=== PATIENT | female | born 1975 | race Caucasian/White ===

== ENCOUNTER 2018-03-09 19:30 | Outpatient (CLI) | payer OTHER | END 2018-03-09 19:31 | disposition home or self-care (01) | LOC: SLEEPLAB 19:30 | PROVIDERS: ATTEND Nurse Practitioner Family | DX: G47.33 Obstructive sleep apnea (adult) (pediatric) (principal); R06.83 Snoring; E66.9 Obesity, unspecified; Z68.43 Body mass index [BMI] 50.0-59.9, adult; I10 Essential (primary) hypertension; F32.9 Major depressive disorder, single episode, unspecified | CPT/HCPCS: 95811 ==

== ENCOUNTER 2018-09-01 10:12 | Outpatient (CLI) | payer OTHER | END 2018-09-01 10:13 | disposition home or self-care (01) | LOC: DTY/OP 10:12 | PROVIDERS: ATTEND Surgery | DX: E66.01 Morbid (severe) obesity due to excess calories (principal) | CPT/HCPCS: 97802 ==

== ENCOUNTER 2018-09-29 09:32 | Outpatient (CLI) | payer OTHER | END 2018-09-29 09:33 | disposition home or self-care (01) | LOC: DTY/OP 09:32 | PROVIDERS: ATTEND Surgery | DX: E66.01 Morbid (severe) obesity due to excess calories (principal) | CPT/HCPCS: 97802 ==

== ENCOUNTER 2018-11-04 10:45 | Outpatient (CLI) | payer OTHER | END 2018-11-04 10:46 | disposition home or self-care (01) | LOC: DTY/OP 10:45 | PROVIDERS: ATTEND Surgery | DX: E66.01 Morbid (severe) obesity due to excess calories (principal) | CPT/HCPCS: 97802 ==

== ENCOUNTER 2018-12-02 10:39 | Outpatient (CLI) | payer OTHER | END 2018-12-02 10:40 | disposition home or self-care (01) | LOC: DTY/OP 10:39 | PROVIDERS: ATTEND Surgery | DX: E66.01 Morbid (severe) obesity due to excess calories (principal); Z98.84 Bariatric surgery status | CPT/HCPCS: 97802 ==

== ENCOUNTER 2019-01-05 00:28 | Outpatient (CLI) | payer OTHER ==
--- NOTE | 2019-01-05 16:23 | RAD ---
CHEST 2 VIEWS: HISTORY: Preoperative evaluation: FINDINGS: Minimal increased bronchovascular markings in the perihilar regions bilaterally. No confluent pneumo eli, overt edema, or pleural effusion. IMPRESSION: Increased bronchovascular markings in the perihilar regions bilaterally without confluent pneumonia, overt edema, or other significant acute process. POS: C
[2019-01-05 16:39] LABS: #Lymphocytes 1.8 thou/uL (1.20-3.40); #Monocytes 0.5 thou/uL (0.11-0.59); #Neutrophils 5.2 thou/uL (1.40-6.50); %Basophils 0.2 % (0.0-1.0); %Eosinophils 0.2 % (0.0-10.0); %Lymphocytes 23.8 % (21.0-51.0); %Monocytes 6.8 % (0.0-10.0); %Neutrophils 69.1 % (42.0-75.0); Mean Corpuscular HGB CONC 31.8 g/dL (32.0-36.0); Mean Corpuscular Hemoglobin 26.7 pg (27.0-31.0); Mean Corpuscular Volume 83.9 fL (78.0-98.0); Mean Platelet Volume 8.6 fL (7.4-10.4); Platelet Count 233 thou/uL (130-400); RBC Distribution Width 13.7 % (11.5-14.5); Red Blood Cell (RBC) Count 5.26 mill/uL (4.20-5.40); White Blood Cell (WBC) Count 7.6 thou/uL (4.8-10.8)
[2019-01-05 16:52] LABS: ALT (SGPT) 16 U/L (8-55); AST (SGOT) 19 U/L (5-34); Albumin 4.2 g/dL (3.5-5.0); Alkaline Phosphatase 50 U/L (40-150); Anion Gap 12 mmol/L (10-20); BUN (Urea Nitrogen) 16 mg/dL (7.0-18.7); Bilirubin, Direct 0.2 mg/dL (0.1-0.3); Bilirubin, Total 0.5 mg/dL (0.2-1.2); Calc. Creatinine Clearance 0 mL/min (70-130); Calcium 9.6 mg/dL (7.8-10.44); Carbon Dioxide 24 mmol/L (22-29); Chloride 104 mmol/L (98-107); Estimated GFR-MDRD 84; Globulin 2.7 g/dL (2.4-3.5); Glucose 76 mg/dL (70-105); Potassium 3.8 mmol/L (3.5-5.1); Protein, Total 6.9 g/dL (6.0-8.3); Sodium 136 mmol/L (136-145)
[2019-01-05 16:53] LABS: Hemoglobin A1c 5.5 % (4.0-6.0)
== END 2019-01-05 00:29 | disposition home or self-care (01) ==
LOC: LABBT 00:28
PROVIDERS: ATTEND Surgery
DX: Z01.818 Encounter for other preprocedural examination (principal); E66.01 Morbid (severe) obesity due to excess calories; R91.8 Other nonspecific abnormal finding of lung field
CPT/HCPCS: 71046; 80053; 80076; 83036; 85025

== ENCOUNTER 2019-01-05 17:00 | Inpatient (IN) | payer OTHER ==
[2019-01-05 14:46] VITALS: BMI 53.9
[2019-01-07] MEDS ORDERED: Naloxone HCl 0.4 mg/ml Vial IV PRN (09:09)
[2019-01-07] MEDS ORDERED: Ondansetron HCl/PF 4 MG/2 ML Vial IVP PRN (09:09)
[2019-01-07] MEDS ORDERED: fentaNYL Citrate/PF 2,000 MCG in Sodium Chloride 0.9% 60 ML IV PRN (09:09)
[2019-01-07] MEDS ORDERED: Promethazine HCl 25 MG/ML VIAL SLOW IVP PRN (09:09)
[2019-01-07] MEDS ORDERED: Zolpidem Tartrate 5 MG TAB PO PRN (09:09)
[2019-01-07] MEDS ORDERED: Promethazine HCl 25 MG/ML VIAL IM PRN ×3 (09:09→14:02)
[2019-01-07] MEDS ORDERED: diphenhydrAMINE 50 MG/ML VIAL IM PRN (09:09)
[2019-01-07] MEDS ORDERED: diphenhydrAMINE 25 MG CAP PO PRN (09:09)
[2019-01-07] MEDS ORDERED: diphenhydrAMINE 50 MG/ML VIAL IVP PRN ×2 (09:09→14:02)
[2019-01-07] MEDS ORDERED: Ondansetron PF 4 MG/2 ML Vial IVP PRN ×2 (09:09→14:02)
[2019-01-07] MEDS ORDERED: Communication Order-Pharmacy FS SCH (09:15)
[2019-01-07] MEDS ORDERED: Bupivacaine HCl 0.5%/Epinephrine 1:200,000/PF 30 ml Vial ONE (12:11)
[2019-01-07] MEDS ORDERED: Fentanyl 250 MCG/5 ML VIAL ONE (12:16)
[2019-01-07] MEDS ORDERED: Heparin 5,000 UNITS/ML VIAL ONE (12:18)
[2019-01-07] MEDS ORDERED: Midazolam HCl 2 mg/2 ml Vial ONE (12:43)
[2019-01-07] MEDS ORDERED: Hydrocodone-Acetamin 15 ML UDCUP PO PRN (14:02)
[2019-01-07] MEDS ORDERED: Dextrose 50% Abboject 50 ML SYRINGE SLOW IVP PRN (14:02)
[2019-01-07] MEDS ORDERED: hydrALAZINE 20 MG/ML VIAL SLOW IVP PRN (14:02)
[2019-01-07] MEDS ORDERED: Dextrose 5% in Water 1,000 ML IV PRN (14:02)
[2019-01-07] MEDS ORDERED: Albuterol Sulfate 1.25 MG/3 ML NEB ONE (14:07)
[2019-01-07] MEDS ORDERED: Promethazine HCl 25 MG/ML VIAL ONE (14:22)
[2019-01-07] MEDS ORDERED: Fentanyl 100 MCG/2 ML VIAL ONE (14:32)
[2019-01-07] MEDS ORDERED: Ondansetron PF 4 MG/2 ML Vial ONE (15:56)
[2019-01-07] MEDS ORDERED: Dexamethasone 20 MG/5 ML VIAL ONE (15:56)
[2019-01-07] MEDS ORDERED: PHENYLEPHRINE-NS 100 MCG/ML 10 ML SYRINGE ONE (15:56)
[2019-01-07] MEDS ORDERED: Glycopyrrolate 0.2 MG/ML 5 ML SYRINGE ONE (15:56)
[2019-01-07] MEDS ORDERED: ePHEDrine 50 MG/ML VIAL ONE (15:56)
[2019-01-07] MEDS ORDERED: Ketorolac Tromethamine 30 MG/ML VIAL ONE (15:56)
[2019-01-07] MEDS ORDERED: PROPOFOL 200 MG/20 ML VIAL ONE (15:56)
[2019-01-07] MEDS ORDERED: Rocuronium Bromide 10 MG/ML (10ML VIAL) ONE (15:56)
[2019-01-07] MEDS ORDERED: Lidocaine 1% PF 5 ML VIAL ONE (15:56)
[2019-01-07] MEDS: D5 1/2 NS w/20 mEq KCL 1,000 ML IV SCH ×3 (17:37→22:42)
[2019-01-07] MEDS: Ketorolac Tromethamine 30 MG/ML VIAL IVP SCH ×2 (18:48→23:43)
[2019-01-07] MEDS: CEFAZOLIN 2 GM in Premix Bag 1 BAG IVPB SCH (20:15)
[2019-01-08] MEDS: CEFAZOLIN 2 GM in Premix Bag 1 BAG IVPB SCH (04:21)
[2019-01-08] MEDS: Ketorolac Tromethamine 30 MG/ML VIAL IVP SCH ×2 (04:21→12:08)
[2019-01-08 04:51] LABS: #Lymphocytes 1.2 thou/uL (1.20-3.40); #Monocytes 0.5 thou/uL (0.11-0.59); %Basophils 0.1 % (0.0-1.0); %Eosinophils 0.1 % (0.0-10.0); %Monocytes 6.1 % (0.0-10.0); %Neutrophils 79.6 % (42.0-75.0); Mean Corpuscular HGB CONC 31.8 g/dL (32.0-36.0); Mean Corpuscular Hemoglobin 27.3 pg (27.0-31.0); Mean Platelet Volume 8.4 fL (7.4-10.4); Platelet Count 205 thou/uL (130-400); RBC Distribution Width 13.8 % (11.5-14.5); Red Blood Cell (RBC) Count 4.75 mill/uL (4.20-5.40); White Blood Cell (WBC) Count 8.8 thou/uL (4.8-10.8)
[2019-01-08 05:19] LABS: Anion Gap 11 mmol/L (10-20); BUN (Urea Nitrogen) 5 mg/dL (7.0-18.7); Calc. Creatinine Clearance 214 mL/min (70-130); Calcium 8.8 mg/dL (7.8-10.44); Carbon Dioxide 25 mmol/L (22-29); Chloride 105 mmol/L (98-107); Estimated GFR-MDRD 88; Glucose 88 mg/dL (70-105); Potassium 4.2 mmol/L (3.5-5.1); Sodium 137 mmol/L (136-145)
[2019-01-08] MEDS ORDERED: Enoxaparin Sodium 40 MG/0.4 ML SYRINGE SC SCH (09:00)
[2019-01-08] MEDS ORDERED: Pantoprazole 40 MG VIAL IVP SCH (09:00)
--- NOTE | 2019-01-08 10:04 | OP ---
DATE OF PROCEDURE: 01/07/2019 PREOPERATIVE DIAGNOSIS: Morbid obesity. PROCEDURES PERFORMED: Laparoscopic sleeve gastrectomy and esophagogastroscopy. INDICATIONS: The patient is a 43-year-old female, morbidly obese, who has attempted multiple weight loss programs without success. FINDINGS: A 38-Mongolian bougie used. DESCRIPTION OF PROCEDURE: After informed consent was obtained, the patient was taken to the operating room, given general endotracheal anesthesia, placed in supine position. Abdomen was prepped and draped in usual fashion. Local anesthesia infiltrated subcutaneously and deep. A 12 mm incision was performed approximately 8 inches below the xiphoid slightly to the left. Veress needle inserted. Drop test performed. Pneumoperitoneum was created to a volume of 2 L of carbon dioxide. Utilizing a bladeless 12 mm trocar and 0-degree laparoscope, direct visual entry in the abdominal cavity was performed. Pneumoperitoneum was then created to a pressure of 15 mmHg. The patient was placed in steep reverse Trendelenburg position. Maciel liver retractor inserted. Left lobe of liver retracted superiorly. The pylorus identified a 12 mm port placed on the right beneath it and two 12s placed in left subcostal. The omentum was taken off the greater curvature 5 cm from the pylorus utilizing the LigaSure. Short gastric was taken down utilizing the LigaSure left crura defined with the LigaSure. A 38-Mongolian bougie inserted, directed into the antrum. The linear 60 mm green load stapler used to divide the antrum to the bougie, gold load along the bougie, and a series of blues through the angle of His. Intraoperative endoscopy was performed. The videoendoscope inserted under direct vision and advanced into the sleeve. The staple line inspected, there was no bleeding. Staple line then tested by inflating the new stomach with pressurized air and water, there was no air leak. Stomach decompressed. Scope removed. The remnants of the stomach removed from the abdomen through the left lateral port site. The fascia closed with 0 Vicryl suture and the GraNee needle. Trocars and retractors were removed. Skin closed with interrupted 4-0 Rapide. Dermabond applied. The patient tolerated the procedure well transferred to Recovery in good condition. Sponge and needle count verified correct x2. Job ID: [id number]
--- NOTE | 2019-01-08 10:24 | RAD ---
BARIUM SWALLOW: HISTORY: Status post operative day 1, gastric sleeve. EXPOSURE: 0.4 minutes. 35.67 Gy per cm2. FINDINGS: The patient was administered a total of 15 mL of Gastrografin, which passes without difficulty or del ay, from the esophagus into the residual stomach. No leak or extravasation. Small focal outpouching of the distal esophagus may represent a small esophageal diverticulum. This diverticulum does fill with contrast but also empties the contrast immediately. IMPRESSION: No leak or extravasation. POS: KAUSHAL
--- NOTE | 2019-01-08 10:58 | DIS ---
DATE OF ADMISSION: 01/07/2019 DATE OF DISCHARGE: 01/08/2019 DISCHARGE DIAGNOSIS: Morbid obesity. PROCEDURES DURING ADMISSION: Laparoscopic sleeve gastrectomy, intraoperative esophagogastroscopy, postoperative Gastrografin swallow. HOSPITAL COURSE: The patient was admitted, taken to the operating room, where she underwent sleeve. Postoperatively, she has done well. Her x-ray is fine. She was started on liquids. She is tolerating it well. Pain controlled on p.o. medications. She is discharged home on hydrocodone and Zofran. She will follow up with me in 2 weeks. Job ID: [id number]
[2019-01-08 11:21] VITALS: BP 113/70; TEMP 98.9
== END 2019-01-08 12:30 | disposition home or self-care (01) | DRG 621 ==
LOC: SURG A 01-07 11:11 → SJJU 01-07 15:19
PROVIDERS: ADMIT Surgery; ATTEND Surgery
PROC: 0DB64Z3 Excision of Stomach, Percutaneous Endoscopic Approach, Vertical (ICD-10-PCS; principal; 2019-01-07)
PROC: 0DJ08ZZ Inspection of Upper Intestinal Tract, Via Natural or Artificial Opening Endoscopic (ICD-10-PCS; 2019-01-07)
DX: E66.01 Morbid (severe) obesity due to excess calories (principal); Z68.43 Body mass index [BMI] 50.0-59.9, adult
CPT/HCPCS: 36415; 71046; 74241; 80048; 80053; 80076; 83036; 85025; 88307; 88312; 93005; 93010; C9113; J0670; J1100; J1644; J1650; J1885; J2001; J2250; J2405; J2550; J2704; J3010; J3490; J7050